=== PATIENT | male | born 1950 | race Caucasian/White ===

== ENCOUNTER 2019-04-18 14:52 | Observation (INO) | payer BC, MEDICARE ==
[~2019-04-18] VITALS: Ht 198.1 cm; Wt 145.8 kg
[2019-04-18] MEDS ORDERED: ACETAMINOPHEN 325 MG TAB PO NR (15:15)
[2019-04-18] MEDS ORDERED: CEFTRIAXONE SOD 1 GM/NS 50 ML 50 ML IV ONE (15:15)
[2019-04-18] MEDS ORDERED: IBUPROFEN 400 MG TAB PO NR (15:15)
[2019-04-18] MEDS ORDERED: SODIUM CHLORIDE 0.9% 1000ML 1,000 ML IV SCH ×2 (15:15)
[2019-04-18] MEDS ORDERED: METOPROLOL TARTRATE INJ 1 MG/ML VIAL ONE (15:22)
[2019-04-18] MEDS ORDERED: METOPROLOL TARTRATE INJ 1 MG/ML VIAL IV NR (15:30)
[2019-04-18 15:34] LABS: BASOPHILS % 0.2 % (0.0-1.0); EOSINOPHILS % 0.3 % (0.0-6.0); HEMATOCRIT 44.9 % (38.2-49.6); HEMOGLOBIN 15.4 g/dL (14.0-18.0); LYMPHOCYTES # (AUTO) 3.8 (1.0-3.2); LYMPHOCYTES % 29.4 % (18.0-39.1); MEAN CORPUSCULAR HEMOGLOBIN 30.3 pg (28-32); MEAN CORPUSCULAR HGB CONC 34.3 g/dL (31-35); MEAN CORPUSCULAR VOLUME 88.4 fL (81-99); MONOCYTES # (AUTO) 2.5 (0.2-0.8); MONOCYTES % 19.5 % (4.4-11.3); NEUTROPHILS # (AUTO) 6.4 (2.1-6.9); NEUTROPHILS % 50.1 % (38.7-80.0); PLATELET COUNT 182 x10e3/uL (140-360); RED BLOOD COUNT 5.08 x10e6/uL (4.3-5.7); RED CELL DISTRIBUTION WIDTH 12.4 % (11.7-14.4)
[2019-04-18 15:44] LABS: ABG PH 7.38 (7.31-7.41)
[2019-04-18 15:45] LABS: ABG HCO3 20 mmol/L (23-28); ABG PCO2 34 mmHg (41-51); ABG PO2 89 mmHg (80-105)
[2019-04-18 15:47] LABS: ALBUMIN/GLOBULIN RATIO 1.1 (0.8-2.0); ANION GAP 18.9 mmol/L (8-16); CALCIUM 10.2 mg/dL (8.4-10.2); CREATININE, SERUM 1.74 mg/dL (0.72-1.25); POTASSIUM 3.9 mmol/L (3.5-5.1)
--- NOTE | 2019-04-18 15:52 | Diagnostic Imaging Report ---
EXAM: CHEST SINGLE (NOT PORTABLE) DATE: 04/18/2019 3:04 PM INDICATION: Sepsis, elevated blood sugar COMPARISON: None FINDINGS: The trachea is midline. The lungs are symmetrically expanded without evidence for focal consolidation, pneumothorax, or significant pleural effusion. The cardiomediastinal silhouette is within normal limits. No acute osseous abnormalities identified. IMPRESSION: No acute cardiopulmonary process identified. Signed by: Dr. James Donis MD on 04/18/2019 3:49 PM
[2019-04-18] MEDS ORDERED: ADENOSINE 6 MG/2 ML VIAL IV ONE (16:00)
[2019-04-18] MEDS ORDERED: DILTIAZEM HCL VIAL 5 ML ONE (16:10)
[2019-04-18] MEDS ORDERED: DILTIAZEM HCL 5 MG/ML 5 ML VIAL IV STA (16:32)
[2019-04-18] MEDS ORDERED: SODIUM CHLORIDE 0.9% 1000ML 1,000 ML IV STA (16:33)
--- OUTSIDE RECORDS SUMMARY | 2019-04-18 16:56 | XMS REPORT ---
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 Allergies, Adverse Reactions, Alerts This patient has no known allergies or adverse reactions. Medications This patient has no known medications. Results Test Description Test Time Test Comments Text Results Atomic Results Result Comments CHEST SINGLE (NOT PORTABLE) 2019-04-18 15:48:00 [facility] [address] [place] [address] Patient Name: JOSEP MOHAN MR #: [id number] : 1950 Age/Sex: 68/M Req #: [id number] [facility] Physician: Ordered by: RAUL HOOKS NURSING OFFICER Report #: [id number] Location: ER Room/Bed: Procedure: [id number] DX/CHEST SINGLE (NOT PORTABLE) Exam Date: 04/18/19 Exam Time: 1533 REPORT STATUS: Signed EXAM: CHEST SINGLE (NOT PORTABLE) DATE: 04/18/2019 3:04 PM INDICATION: Sepsis, elevated blood sugar COMPARISON: None FINDINGS: The trachea is midline. The lungs are symmetrically expanded without evidence for focal consolidation, pneumothorax, or significant pleural effusion. The cardiomediastinal silhouette is within normal limits. No acute osseous abnormalities identified. IMPRESSION: No acute cardiopulmonary process identified. Signed by: Dr. James Donis MD on 04/18/2019 3:49 PM Dictated By: JAMES DONIS MD [id number] Transcribed By: Gianfranco BANSAL on 04/18/19 1547 COPY TO: RAUL HOOKS NP
[2019-04-18 17:48] LABS: CHOL/HDL RATIO 8.6 (3.9-4.7); CHOLESTEROL 292 MD/DL (0-199); HDL CHOLESTEROL 34 MG/DL (40-60); TRIGLYCERIDES 561 MG/DL (0-149)
[2019-04-18 18:10] LABS: BILIRUBIN,URINE NEGATIVE (NEGATIVE); CLARITY,URINE SL CLOUDY (CLEAR); COLOR,URINE YELLOW (YELLOW); KETONES,URINE TRACE (NEGATIVE); LEUKOCYTE ESTERASE ,URINE NEGATIVE (NEGATIVE); NITRITE,URINE NEGATIVE (NEGATIVE); PROTEIN,URINE DIPSTICK 1+ (NEGATIVE); URINE UROBILINOGEN 0.2 mg/dL (0.2 - 1)
[2019-04-18] MEDS: INSULIN LISPRO 100 UNIT/1 ML 3ML VIAL SQ SCH (18:18)
[2019-04-18] MEDS: SODIUM CHLORIDE 0.9% 1000ML 1,000 ML IV SCH (18:18)
[2019-04-18] MEDS: METOPROLOL TARTRATE 25 MG TAB PO SCH ×2 (18:18→23:43)
[2019-04-18 18:24] LABS: AMORPHOUS SEDIMENT,URINE FEW (FEW); BACTERIA,URINE MODERATE /HPF; EPITHELIAL CELLS,URINE RARE /LPF; MUCUS,URINE MODERATE (RARE)
[2019-04-18] MEDS ORDERED: CYCLOBENZAPRINE5 MG PO (18:24)
[2019-04-18] MEDS ORDERED: GABAPENTIN300 MG PO (18:24)
[2019-04-18] MEDS ORDERED: METOPROLOL TART50 MG PO (18:24)
[2019-04-18] MEDS ORDERED: LOSARTAN POTAS100 MG PO (18:24)
[2019-04-18] MEDS ORDERED: HUMALOG100 UNIT/3 (18:26)
[2019-04-18] MEDS ORDERED: LEVEMIR100 UNIT/1 (18:26)
[2019-04-18] MEDS ORDERED: PROAIR HFA INH8.5 GM (18:26)
--- NOTE | 2019-04-18 18:29 | History and Physical ---
CHIEF COMPLAINT: "I do not feel well." HISTORY OF PRESENT ILLNESS: This is a 68-year-old, white man, who presents to [facility] with 2-day history of generalized weakness and blurry vision. This morning checked his glucose elevating 600 mg/dL. The patient was actually seen in his primary care physician's office and was sent to the emergency room. The patient states in the past two months he has not felt well. The patient states that in the last two months he has been treated twice for left-sided abdominal wall cellulitis, which he feels secondary to his insulin site injections. In the emergency room, the patient was found to be in atrial fibrillation with rapid ventricular rate. The patient was also [place] [address] with 50% segmented neutrophils. The patient's BUN and creatinine in the emergency room are 23 and 1.74 something, but he does have a known history of stage 2 chronic kidney disease with microalbuminuria. The patient's lactic acid level was elevated of 47.8. The patient was given one dose of Cardizem 10 mg intravenously, which did control his heart rate. He is also given one dose of adenosine 6 mg today. The patient admits to not taking his prescribed medication as directed. The patient did have chest x-ray done in the emergency room, which did not reveal any acute cardiopulmonary pathology. REVIEW OF SYSTEMS: GENERAL: Weight is stable. No fever or chills, but he has had generalized weakness and not felt well for the last two months. HEENT: No headaches. Visual changes particularly blurry vision last couple of days. CARDIOVASCULAR/RESPIRATORY: No chest pain or short of breath. No cough. He did experience palpitations today. GI: No nausea, vomiting, constipation. : The patient states that he has had frequent urination in the last few days. NEUROMUSCULAR: Denies any limb weakness. He has numbness in his feet. PAST MEDICAL HISTORY: 1. Type 2 diabetes mellitus. 2. Diabetic peripheral neuropathy. 3. Hypertensive heart disease. 4. Obesity. 5. Lumbar disk disease. 6. Cervical disk disease. 7. Erectile dysfunction. 8. Hypogonadism. 9. Obstructive sleep apnea. 10. Stage 2 chronic kidney disease with microalbuminuria. 11. Dyslipidemia. PAST SURGICAL HISTORY: 1. Right elbow surgery. 2. Lumbar epidural steroid injection in 2009. SOCIAL HISTORY: He is and currently lives alone. He does have a girlfriend. The patient does not smoke tobacco, but drinks alcohol socially. 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 ALLERGIES: NO KNOWN DRUG ALLERGIES. MEDICATIONS: 1. Levemir insulin 80 units subcutaneously twice a day. 2. Humalog insulin 35 units 3 times a day. 3. Losartan 100 mg daily. 4. Metoprolol 100 mg b.i.d. 5. Metformin 1000 mg b.i.d. 6. Crestor 20 mg at bedtime. 7. Flexeril 10 mg t.i.d. prn spasms. 8. Gabapentin 600 mg t.i.d. 9. Albuterol inhaler 2 puffs q.i.d. prn dyspnea or wheezing. PHYSICAL EXAMINATION: GENERAL: He is awake, alert, and fluent. He is pleasant on exam. VITAL SIGNS: Height 6 feet 6 inches, weighs 340 pounds, BMI 39, blood pressure 123/73, pulse 77, respiratory rate 18, temperature 98.1, oxygen saturation 99% on room air. INTEGUMENT: Skin is warm and dry. His heart rate was 160 when he arrived in emergency room. SKIN: Warm, dry. No pallor, jaundice or diaphoresis. HEENT: Anicteric sclerae with moist mucous membranes. NECK: Supple. CARDIOVASCULAR: Regular rate, irregular rhythm. LUNGS: No rales, no rhonchi or wheezes. ABDOMEN: Obese, benign. On the left lower quadrant abdominal area, he does have some erythema and induration. It is slightly tender to touch. EXTREMITIES: No edema or deformity. NEURO: Intact. Nonfocal, but he does have decreased pinprick sensation in the plantar aspect of his bilateral feet. DIAGNOSES: 1. Atrial fibrillation with rapid ventricular rate. 2. Type 2 diabetes mellitus, uncontrolled. 3. Acute on chronic renal failure. 4. Sepsis. PLAN: 1. Intravenous fluids. 2. Consult Cardiology. 3. Blood glucose control. 4. Administer empiric intravenous antibiotics in the form of ceftriaxone. 5. Follow lactic acid level. 6. Send urine for urinalysis, culture and stain. 7. Follow renal function. 8. Order 2D echocardiogram. I spent 45 minutes care of this patient. MD ROBERT Pederson/JULIENL /[id number] MTDKeagan
[2019-04-18 20:26] VITALS: BP 150/85
[2019-04-18 20:47] VITALS: BP 150/85
[2019-04-18] MEDS: INSULIN GLARGINE 100 UNITS/ML VIAL SQ SCH (22:05)
[2019-04-18 23:40] VITALS: BP 136/84
[2019-04-19 00:50] LABS: CREATINE KINASE MB 2.1 ng/mL (0-5.0)
[2019-04-19 03:50] VITALS: BP 153/73
[2019-04-19 05:03] LABS: BASOPHILS % 0.3 % (0.0-1.0); EOSINOPHILS # (AUTO) 0.1 (0.0-0.4); EOSINOPHILS % 1.3 % (0.0-6.0); HEMOGLOBIN 12.4 g/dL (14.0-18.0); LYMPHOCYTES # (AUTO) 2.6 (1.0-3.2); LYMPHOCYTES % 33.8 % (18.0-39.1); MEAN CORPUSCULAR HGB CONC 33.5 g/dL (31-35); MEAN CORPUSCULAR VOLUME 89.6 fL (81-99); MONOCYTES # (AUTO) 1.3 (0.2-0.8); NEUTROPHILS # (AUTO) 3.6 (2.1-6.9); NEUTROPHILS % 47.1 % (38.7-80.0); PLATELET COUNT 133 x10e3/uL (140-360); RED BLOOD COUNT 4.13 x10e6/uL (4.3-5.7); RED CELL DISTRIBUTION WIDTH 12.5 % (11.7-14.4)
[2019-04-19] MEDS: SODIUM CHLORIDE 0.9% 1000ML 1,000 ML IV SCH ×2 (05:04→08:32)
[2019-04-19] MEDS: METOPROLOL TARTRATE 25 MG TAB PO SCH ×2 (05:13→11:45)
[2019-04-19 05:27] LABS: ALANINE AMINOTRANSFERASE 16 IU/L (0-55); ALBUMIN 3.2 g/dL (3.5-5.0); ALBUMIN/GLOBULIN RATIO 1.1 (0.8-2.0); ALKALINE PHOSPHATASE 57 IU/L (40-150); ANION GAP 13.7 mmol/L (8-16); BLOOD UREA NITROGEN 20 mg/dL (7-26); BUN/CREATININE RATIO 20 (6-25); CALCIUM 8.7 mg/dL (8.4-10.2); CARBON DIOXIDE 24 mmol/L (22-29); CHLORIDE 97 mmol/L (98-107); CREATININE, SERUM 1.02 mg/dL (0.72-1.25); EST GLOMERULAR FILTRATION RATE > 60 ML/MIN (60-); GLUCOSE 221 mg/dL (74-118); POTASSIUM 3.7 mmol/L (3.5-5.1); SODIUM 131 mmol/L (136-145)
[2019-04-19 06:30] LABS: CREATINE KINASE MB 1.6 ng/mL (0-5.0)
[2019-04-19 07:50] VITALS: BP 149/102
[2019-04-19 08:50] VITALS: BP 149/102
[2019-04-19] MEDS: INSULIN GLARGINE 100 UNITS/ML VIAL SQ SCH (08:50)
[2019-04-19] MEDS: INSULIN LISPRO 100 UNIT/1 ML 3ML VIAL SQ SCH ×2 (08:50→11:45)
[2019-04-19] MEDS ORDERED: LOSARTAN POTASSIUM 100 MG TAB PO SCH (10:00)
[2019-04-19] MEDS ORDERED: METOPROLOL SUCC50 MG PO (11:08)
[2019-04-19] MEDS ORDERED: CRESTOR10 MG PEG (11:15)
[2019-04-19] MEDS ORDERED: Eliquis PO (11:15)
[2019-04-19 11:25] VITALS: BP 161/95
--- NOTE | 2019-04-19 11:53 | Discharge Summary ---
ADMIT DIAGNOSES: 1. Atrial fibrillation with rapid ventricular rate. 2. Type 2 diabetes mellitus, uncontrolled. 3. Drcyw-hg-chhurgq renal failure. 4. Sepsis, likely. 5. Lactic acidosis. DISCHARGE DIAGNOSES: 1. Paraesophageal atrial fibrillation (rate controlled). 2. Type 2 diabetes mellitus with neuropathy. 3. Hyperglycemia, resolved. 4. Acute renal insufficiency, resolved. 5. Stage 2 chronic kidney disease with microalbuminuria. 6. Hypertensive heart disease. 7. Chronic systolic/diastolic congestive heart failure. 8. Lactic acidosis, resolved. 9. Dyslipidemia. 10. Hypertriglyceridemia. HOSPITAL COURSE: This is a 68-year-old white man, who was initially admitted to [facility], diagnosed with atrial fibrillation with rapid ventricular rate and uncontrolled type 2 diabetes mellitus. The patient's glucose got as high as 600 mg/dL at his primary care physician's office on day of admission. On this admission, his serum glucose level was found to be 408 mg/dL. The patient glucose levels normalized with Lantus insulin 80 units subcutaneous twice a day coupled with Humalog insulin 35 units 3 times daily with meals. The patient had serial cardiac enzymes as well as electrocardiograms done during hospitalization, which did not reveal any evidence of acute myocardial ischemia or infarction. The patient was seen by Cardiology during this hospitalization, namely, Dr. Mamadou Avila. Apparently, 3 months ago, the patient had his outpatient stress test, which was normal at Dr. Avila's office. The patient was found to have an elevated triglyceride level during this hospitalization of 561. The patient admitted to not being compliant with his diabetic and cardiac medications. During this hospitalization, the patient underwent a 2D echocardiogram, which revealed left ventricular ejection fraction of 45-50%, as well as findings consistent with diastolic dysfunction. He is also found to have concentric left ventricular hypertrophy. On admission, the patient's BUN and creatinine was 23 and 1.74 respectively. On day of discharge, BUN and creatinine was 20 and 1.02 respectively. The patient's lactic acid on admission was 47.8 and on day of discharge when checked 3 hours later it was 17.2, it was felt that perhaps the patient's lactic acidosis was secondary to metformin use. The decision was made to stop metformin during this hospitalization because of lactic acidosis. The patient's brief hospitalization was unremarkable. The patient's condition on discharge was stable. DISCHARGE MEDICATIONS: 1. Levemir insulin 80 units subcutaneous twice a day. 2. NovoLog insulin 35 units subcutaneous t.i.d. with meals. 3. Losartan 100 mg daily. 4. Metoprolol succinate 50 mg b.i.d. 5. Crestor 40 mg at bedtime. 6. Flexeril 10 mg t.i.d. p.r.n. back spasms. 7. Gabapentin 600 mg t.i.d. 8. Albuterol inhaler two puffs q.i.d. p.r.n. shortness of breathing. 9. Eliquis 5 mg b.i.d. FOLLOWUP INSTRUCTIONS: The patient was instructed to follow up with his primary care physician, namely myself, Dr. Florin Huber, in 2 weeks. He was stressed heavily to the patient that he must remain compliant with his medications particularly his insulin regimen. MD ROBERT Pederson/TASHA /[id number] cc: Mamadou Avila DO
[2019-04-19] MEDS ORDERED: GABAPENTIN 300 MG CAP PO SCH (15:00)
--- NOTE | 2019-04-20 15:56 | Consultation ---
DATE OF CONSULTATION: 04/19/2019 Cardiology Consultation REASON FOR CONSULTATION: Atrial fibrillation. HISTORY OF PRESENT ILLNESS: This is a 68-year-old man with a history of hypertension, hyperlipidemia, diabetes mellitus, obstructive sleep apnea, obesity, and chronic kidney disease, who presented to the emergency department with generalized unwell feeling, weakness, and visual changes. His glucose was noted to be significantly elevated. Upon arrival to the emergency department, he was found to be in atrial flutter with rapid ventricular response and received diltiazem. The patient had seen me prior to this hospitalization and a stress test and echocardiogram were both within normal limits. He is currently feeling better. Denies any chest pain, shortness of breath, orthopnea, palpitations, or syncopal events. REVIEW OF SYSTEMS: A 12-point review of systems was conducted, is negative except as stated above in the HPI. PAST MEDICAL HISTORY: As stated above in the HPI. PAST SURGICAL HISTORY: Right elbow surgery, epidural steroid injections. SOCIAL HISTORY: No tobacco use. ALLERGIES: NO KNOWN DRUG ALLERGIES. MEDICATIONS: See medication reconciliation form. FAMILY HISTORY: Noncontributory. PHYSICAL EXAMINATION: VITAL SIGNS: Temperature is 98.5, heart rate is 65, respirations are 17, blood pressure is 149/102, and oxygen saturation is 95% on room air. GENERAL: Well appearing, well built, in no apparent distress. Alert and oriented x3. HEAD: Normocephalic, atraumatic. EYES: The extraocular muscles are intact. Conjunctivae clear. NECK: No JVD. No bruits. CARDIOVASCULAR: Regular rate and rhythm. LUNGS: Clear to auscultation. ABDOMEN: Soft, nontender, and nondistended. EXTREMITIES: No clubbing, cyanosis, or edema. VASCULAR: 2+ pulses. SKIN: Warm, dry, and intact. NEUROLOGIC: No focal deficits noted. LABORATORY DATA: Reviewed. Troponin negative x3. Potassium 3.9, triglycerides 561, total cholesterol 292. A 12-lead electrocardiogram showed atrial flutter with rapid ventricular response. Ejection fraction is 50% to 55%. IMPRESSION AND PLAN: 1. Atrial flutter with rapid ventricular response. 2. Uncontrolled diabetes mellitus. 3. Kvapc-ub-clwular kidney disease. 4. Hypertension. 5. Hyperlipidemia. Increase metoprolol to succinate formulation 50 b.i.d. Start Eliquis. Change to Crestor 40. The patient ruled out for acute myocardial infarction and his ejection fraction remains normal. The patient has an elevated CHADS-VASc score still prompting the reason for anticoagulation. He may be discharged from a cardiovascular standpoint with outpatient followup. DO VALERIA Linton/TASHA /[id number]
== END 2019-04-19 13:02 | disposition home or self-care (01) ==
LOC: ER 14:52 → INTOOBSV 16:54 → ERHOLD 16:54 → MED/SURG2 20:27
PROVIDERS: ADMIT Internal Medicine; ATTEND Internal Medicine
DX: I48.91 Unspecified atrial fibrillation (principal); N17.9 Acute kidney failure, unspecified; E11.22 Type 2 diabetes mellitus with diabetic chronic kidney disease; N18.2 Chronic kidney disease, stage 2 (mild); A41.9 Sepsis, unspecified organism; Z91.14 Patient's other noncompliance with medication regimen; E11.42 Type 2 diabetes mellitus with diabetic polyneuropathy; Z79.4 Long term (current) use of insulin; E11.65 Type 2 diabetes mellitus with hyperglycemia; E66.9 Obesity, unspecified; M51.9 Unspecified thoracic, thoracolumbar and lumbosacral intervertebral disc disorder; M50.90 Cervical disc disorder, unspecified, unspecified cervical region; E78.5 Hyperlipidemia, unspecified; G47.33 Obstructive sleep apnea (adult) (pediatric); I48.92 Unspecified atrial flutter; I13.0 Hypertensive heart and chronic kidney disease with heart failure and stage 1 through stage 4 chronic kidney disease, or unspecified chronic kidney disease; I50.42 Chronic combined systolic (congestive) and diastolic (congestive) heart failure
CPT/HCPCS: 36415 ×2; 71045; 80053 ×2; 80061; 81001; 82550 ×2; 82553 ×2; 82805; 82948 ×2; 83605; 83880; 84484 ×2; 85025 ×2; 87040; 87071; 87086; 87186; 87205; 93005; 93306; 99284; G0378 ×2; J0153; J0696; J1815 ×2; J7030 ×2

== ENCOUNTER 2019-05-11 16:07 | Emergency (ER) | payer BC, MEDICARE ==
[~2019-05-11] VITALS: Ht 198.1 cm; Wt 143.5 kg
[~2019-05-11 16:07] MED LIST: CRESTOR10 MG PEG; CYCLOBENZAPRINE5 MG PO; Eliquis PO; GABAPENTIN300 MG PO; HUMALOG100 UNIT/3; LEVEMIR100 UNIT/1; LOSARTAN POTAS100 MG PO; METOPROLOL SUCC50 MG PO; METOPROLOL TART50 MG PO; PROAIR HFA INH8.5 GM
[2019-05-11] MEDS ORDERED: IOPAMIDOL 370 MG/ML 200 ML INFUS..BTL INJ ONE (17:00)
[2019-05-11] MEDS ORDERED: SODIUM CHLORIDE 0.9% 50ML 50 ML ONE (17:01)
--- NOTE | 2019-05-11 18:14 | Diagnostic Imaging Report ---
EXAMINATION: Head CT HISTORY: Facial pain, history of Decker's palsy, left facial lung last 2 weeks. COMPARISON: None. TECHNIQUE: Multidetector axial images were obtained without contrast from the foramen magnum to the vertex . The images were reconstructed using brain and bone algorithms. Thin section brain images were reformatted into coronal and sagittal planes. Image quality: Motion/streaking artifact limits the evaluation of the skull base and posterior cranial fossa. Dose modulation, iterative reconstruction, and/or weight based adjustment of the mA/kV was utilized to reduce the radiation dose to as low as reasonably achievable. FINDINGS: Parenchyma: 1. A few scattered hypodensities, most likely nonspecific chronic microvascular ischemic changes. 2. No mass or hemorrhage. No CT evidence of acute territorial vascular insult. Extra-axial spaces:No abnormal density. No extra-axial fluid collections Brain volume: Normal for age. Ventricles: No hydrocephalus or displacement. Arteries: No density suggestive of thrombus. Dural sinuses: No abnormal density. Extra-axial spaces: No abnormal density. Foramen magnum: No mass, Chiari malformation, or basilar invagination. Sella: No obvious mass. Paranasal/mastoid sinuses: Imaged portions unremarkable. Skull/Scalp: No lytic or blastic lesions. No fractures. IMPRESSION: 1. No acute intracranial abnormalities. 2. Minimal chronic microvascular ischemic changes. 3. If clinical concern remains for facial nerve abnormalities, a dedicated IAC MRI without and with contrast is recommended. Signed by: Dr. Meenakshi Ferrer M.D. on 05/11/2019 6:11 PM
--- NOTE | 2019-05-11 18:53 | Diagnostic Imaging Report ---
EXAMINATION: CT of the neck with contrast HISTORY: Left submandibular lump for the last 2 weeks COMPARISON: None TECHNIQUE: Multidetector helical axial images were obtained from the sternal notch through the skull base during intravenous infusion of iodinated contrast material. Images were reconstructed using soft tissue and bone algorithms and were viewed in multiplanar format. Intravenous contrast: 100 mL of Isovue-370. Dose modulation, iterative reconstruction, and/or weight based adjustment of the mA/kV was utilized to reduce the radiation dose to as low as reasonably achievable. FINDINGS: Soft tissues: Unremarkable, particularly no mass is seen in the submandibular region. Nodes: No lymphadenopathy. Sinuses: Small retention cyst in the right maxillary sinus. Oral cavity: Prominent streak artifact from metallic dental amalgam limits evaluation of the oral cavity. Salivary glands: Parotid and submandibular glands unremarkable. Pharynx: Unremarkable. Larynx: Unremarkable. Thyroid gland: Unremarkable. Upper esophagus: Unremarkable. Blood vessels: Unremarkable. Bones: C2-C3: Disc osteophyte complex formation, bilateral uncovertebral and facet arthrosis. Mild canal stenosis. C3-C4: Disc osteophyte complex formation, bilateral uncovertebral and facet arthrosis minimally on the left resulting in moderate right and moderately severe left foraminal stenosis. Mild canal stenosis. C4-C5: Disc osteophyte complex formation, bilateral uncovertebral hypertrophy is worse on the left. Moderate right and severe left foraminal stenosis. Mild canal stenosis. C5-C6: Facet hypertrophy minimally on the right. Moderate right foraminal stenosis. C6-C7: Disc osteophyte complex formation, bilateral uncovertebral and facet arthrosis. Severe spinal canal and moderate to severe bilateral foraminal stenoses. IMPRESSION: Limited evaluation of the oral cavity due to prominent streak artifact from dental hardware. In spite of these limitations findings as follows: 1. No discrete neck mass, fluid collections or enlarged cervical lymphadenopathy. 2. Multilevel chronic degenerative changes of the cervical spine as detailed above. Signed by: Dr. Meenakshi Ferrer M.D. on 05/11/2019 6:50 PM
--- NOTE | 2019-05-11 19:08 | NUR ---
Report to SARAH Mosley
== END 2019-05-11 19:30 | disposition home or self-care (01) ==
LOC: FSED 16:07
DX: M54.2 Cervicalgia (principal)
CPT/HCPCS: 70450; 70491; 80053; 85025; 99283; Q9967